=== PATIENT | male | born 2000 ===

== ENCOUNTER 2020-12-20 10:15 | Emergency (ER) | payer OTHER | END 2020-12-20 13:08 | disposition home or self-care (01) | LOC: ERS 10:15 | DX: J02.9 Acute pharyngitis, unspecified (principal); R00.0 Tachycardia, unspecified; Z20.822 Contact with and (suspected) exposure to COVID-19 | CPT/HCPCS: 87081; 87430; 96372; 99283; J0561; J1100; Q0162; U0003; U0005 ==